=== PATIENT | female | born 1985 | race Caucasian/White ===

== ENCOUNTER 2017-02-14 14:40 | Inpatient (IN) | payer OTHER ==
[2017-02-14] MEDS ORDERED: EPSOM SALT 454 GM TP PRN (17:37)
[2017-02-14] MEDS ORDERED: OXYTOCIN/RINGERS LACTATE 1,000 ML IV PRN (17:37)
[2017-02-14] MEDS ORDERED: OLIVE OIL 118 ML BTL MISC PRN (17:37)
[2017-02-14] MEDS ORDERED: LR 1,000 ML IV PRN (17:37)
[2017-02-14] MEDS ORDERED: TERBUTALINE SULFATE 1 MG/ML VIAL IV PRN (17:37)
[2017-02-14] MEDS: IBUPROFEN 600 MG TAB PO PRN (18:02)
[2017-02-14 18:27] LABS: % IMMATURE GRANULYOCYTES 1.1 % (0.0-1.1); ABSOLUTE IMMATURE GRANULOCYTES 0.17 10^3/uL (0.00-0.10); ADD DIFF? NO; ADD MORPH? NO; ADD SCAN? NO; ATYPICAL LYMPHOCYTE FLAG 0 (0-99); FRAGMENT RBC FLAG 0 (0-99); HEMATOCRIT 37.8 % (38.0-47.0); HEMOGLOBIN 13.2 g/dL (12.6-16.3); LEFT SHIFT FLG 0 (0-99); LIPEMIA HEMOLYSIS FLAG 90 (0-99); MEAN CELL HEMOGLOBIN 32.5 pg (27.9-34.1); MEAN CELL HEMOGLOBIN CONCENTR. 34.9 g/dL (32.4-36.7); MEAN CELL VOLUME 93.1 fL (81.5-99.8); PLATELET CLUMPS FLAG 0 (0-99); PLATELET COUNT 220 10^3/uL (150-400); RED BLOOD CELL COUNT 4.06 10^6/uL (4.18-5.33); RED CELL DISTRIBUTION WIDTH 12.5 % (11.5-15.2)
[2017-02-14] MEDS ORDERED: ACETAMINOPHEN 325 MG TAB PO PRN (18:38)
[2017-02-14] MEDS ORDERED: OXYTOCIN 10 UNIT/ML VIAL IM ONE (18:38)
--- NOTE | 2017-02-14 18:42 | OBPROC ---
- Labor and Delivery Onset of Contractions Date: 02/14/17 Onset of Contractions Time: 14:00 Onset of Contractions Type: Spontaneous Rupture of Membranes Date: 02/14/17 Rupture of Membranes Time: 17:00 Rupture of Membranes Type: Spontaneous Amniotic Fluid Color: Clear Dilation Complete Time: 17:00 Delivery Type: Spontaneous Placenta Delivery Date: 02/14/17 Placenta Delivery Time: 17:26 Episiotomy/Laceration: 2nd Degree, Midline, Perineal Repair: 3-0, Vicryl EBL: 350 Complications: None - Medications Labor Augmentation/Induction Meds Used: None Anesthesia: Local (Specify) (1% lidocaine) - [place] Info Infant A Delivery Date: 02/14/17 Delivery Time: 17:13 Sex of : Male Score (1 Min): 3 Score (5 Min): 9
--- NOTE | 2017-02-14 20:00 | GHP ---
[f rep st] HISTORY AND PHYSICAL DATE OF ADMISSION: 02/14/2017 HISTORY UPON ADMISSION: The patient is a 31-year-old G2, P1, at 39 weeks' gestation, with an estima teresita due date of 02/21/2017. The patient had gradual onset of labor today, with spontaneous onset at 7 :30 this morning, with infrequent, mild contractions. They increased through the morning and became less than 5 minutes apart approximately 2 p.m. They were still moderate intensity at that point. At approximately 4 p.m., they really increased in intensity, and they presented to labor and deliver y. Bag of water was intact upon admission; however, there was spontaneous rupture of membranes with clear fluid shortly after admission. There was mild bloody mucus throughout the day. Good m ovement. Patient did have a history of rapid labor with her first; however, she was at 35 w eeks. The 1st exam showed the patient to be 9 cm dilated, with low head position. CARE: The patient has been followed by [facility] for care since the ea rly 1st trimester. Full early records are not available. However, the patient did have weekly prog esterone injections due to the delivery at 35 weeks with her first. The patient had a growt h ultrasound due to a history of a bigger estimated weight on earlier ultrasounds. The followup at 32 weeks showed an estimated weight at the 86th percentile. The followup at 38 weeks continue d to show an estimated weight at approximately 90th percentile. The patient was planning for induction at 39 weeks later this week. labs include maternal blood type O negative, and the patient did receive RhoGAM in the preg nannette. Antibody screen was negative. Hepatitis B surface antigen was negative. RPR negative. HIV negative. Rubella immune. Gonorrhea and chlamydia were negative. 1-hour Glucola was normal. 1st trimester testing was negative and MSAFP was negative. The patient was mildly anemic and was on ir on daily. GBS culture was negative. PAST MEDICAL HISTORY: Negative. PAST OBSTETRIC HISTORY: Spontaneous vaginal delivery of a , 35-week, viable female 2 years a go. She was 35+ weeks' gestation and the labor was approximately 6 hours, with minimal pushing at d elivery. PAST SURGICAL HISTORY: Negative. ALLERGIES: No known drug allergies. CURRENT MEDICATIONS: Only vitamins and iron. SOCIAL HISTORY: Patient and presents here with her , and they live with their 2-year -old daughter. Patient is a nonsmoker. No alcohol or drug use. PHYSICAL EXAMINATION UPON ADMISSION: The patient was admitted at 1650. Her blood pressure was norm al at 122/78, and she was afebrile. The patient was checked at 1658 and was 9 cm but then had spont aneous rupture of membranes at 1700 and was completely dilated. The fluid was clear. The patient w as controlled and not pushing for several minutes while we prepared the room. heart tone trac ing revealed the baseline in the 130s with moderate variability. There were no accelerations prior to delivery, and with pushing, there were decelerations, with recovery up to baseline. EXTREMITIES: Nontender and no edema. ASSESSMENT: Intrauterine at 39 weeks upon presentation, close to delivery. Rapid labor. History of and status post progesterone treatment through this . GBS cultur e was negative. PLAN: Expect vaginal delivery and preparations were made for immediate delivery. /[id number]/MODL
[2017-02-14 23:08] VITALS: RESP 18; O2SAT 96
[2017-02-15] MEDS: IBUPROFEN 600 MG TAB PO PRN ×4 (00:03→18:16)
[2017-02-15] MEDS: DOCUSATE SODIUM 100 MG CAP PO PRN (06:19)
[2017-02-15] MEDS: HYDROCODONE/APAP 5/325 TAB PO PRN ×3 (06:19→21:53)
--- NOTE | 2017-02-15 11:50 | SOAPPROG ---
SOAP Progress Note Assessment/Plan: Assessment: ppd# 1 s/p breast feeding Plan: routine post care 02/15/17 11:48 Subjective: patient is doing well. pain is well controlled. normal lochia. denies headache and changes in vision. ambulating. breast feeding is going well. Objective: Vital Signs Temp Pulse Resp BP Pulse Ox 36.5 C 81 18 114/68 96 02/15/17 07:30 02/15/17 07:30 02/15/17 07:30 02/15/17 07:30 02/14/17 20:00 Laboratory Results 02/14/17 18:15 02/14/17 02/15/17 02/16/17 05:59 05:59 05:59 Output Total 250 Balance -250 Physical Exam - Physical Exam General Appearance: WD/WN, alert, no apparent distress Neck: non-tender, full range of motion, supple, normal inspection Respiratory: chest non-tender, lungs clear, normal breath sounds Cardiac/Chest: normal peripheral pulses, regular rate, rhythm Abdomen: normal bowel sounds, non-tender, soft Skin: normal color, warm/dry Extremities: normal range of motion, non-tender, normal inspection, normal capillary refill Neuro/Psych: no motor/sensory deficits, alert, normal mood/affect, oriented x 3 ICD10 Worksheet Patient Problems: Problems Problem Status Onset (spontaneous vaginal delivery) Acute
[2017-02-16] MEDS: IBUPROFEN 600 MG TAB PO PRN ×3 (01:29→15:53)
[2017-02-16] MEDS: DOCUSATE SODIUM 100 MG CAP PO PRN (07:46)
[2017-02-16] MEDS: HYDROCODONE/APAP 5/325 TAB PO PRN ×2 (07:46→12:40)
--- NOTE | 2017-02-16 10:12 | OBPROG ---
OBG Progress Note Assessment/Plan: Assessment: 31 y/o PPD #2 s/p doing well. Plan: D/c home today with Ibuprofen, [place] and APNO. Follow-up @ [facility] 4 and 6 weeks. 02/16/17 10:13 Subjective: Pt is doing well this am. Her cramping is controlled with Ibuprofen and [place]. She is nursing well and baby has a good latch. They are ready to d/c home today after baby has an echo for a heart murmur. Objective: 02/14/17 18:15 Patient ABO/Rh O NEGATIVE 02/14/17 18:15 Temp Pulse Resp BP Pulse Ox 36.3 C 78 18 114/68 96 02/15/17 19:49 02/15/17 19:49 02/15/17 19:49 02/15/17 07:30 02/14/17 20:00 Uterine Position/Fundal Height: Umbilicus -2 Uterine Tone: Firm - Physical Exam General Appearance: WD/WN, alert, no apparent distress Neck: non-tender, full range of motion, supple Respiratory: chest non-tender, lungs clear, normal breath sounds Cardiac/Chest: regular rate, rhythm Abdomen: normal bowel sounds Extremities: swelling (no), Lynnette's sign (neg) ICD10 Worksheet Patient Problems: Problems Problem Status Onset (spontaneous vaginal delivery) Acute
[2017-02-16 16:17] VITALS: BP 119/73; PULSE 76; TEMP 98
== END 2017-02-16 16:30 | disposition home or self-care (01) | DRG 775 ==
LOC: FLD 14:40 → FOB 21:55
PROVIDERS: ADMIT Obstetrics & Gynecology; ATTEND Obstetrics & Gynecology
PROC: 0KQM0ZZ Repair Perineum Muscle, Open Approach (ICD-10-PCS; principal; 2017-02-14)
PROC: 10E0XZZ Delivery of Products of Conception, External Approach (ICD-10-PCS; principal; 2017-02-14)
DX: O70.1 Second degree perineal laceration during delivery (principal); Z3A.39 39 weeks gestation of pregnancy; Z37.0 Single live birth